=== PATIENT | male | born 1975 | race Caucasian/White ===

== ENCOUNTER 2023-09-16 09:57 | Emergency (ER) | payer MEDICAID, SELFPAY ==
[2023-09-16 10:00] VITALS: BP 101/68; PULSE 89; RESP 19; TEMP 35.7; O2SAT 98; BMI 23.3
--- NOTE | 2023-09-16 10:53 | EDS_ITS ---
HPI HPI - GI History of Present Illness Chief Complaint: Abd Pain Informant: patient Abdominal Pain/Flank Pain Onset: Days (2) Context: Gradual Onset Timing: Continuous Quality: - (Discomfort) Location: - (Diffuse lower abdomen nonlateralizing) Current Severity: Moderate Maximum Severity: Moderate Worsened by: Car ride Relieved by: Nothing Nausea/Vomiting/Emesis GI Symptom: Negative for Nausea or Vomiting Diarrhea/Melena/Hematochezia GI Symptom: Positive for Diarrhea; Negative for Melena or Hematochezia Onset: Days (2) Stool Quality: Positive for Watery (With bits of undigested food) Severity: Moderate (5-10 bouts per day approximately) Associated Symptoms Associated Symptoms: Negative for Dysuria, Frequency, Hematuria or Urgency Narrative Narrative: 47-year-old male has been having diarrhea and lower abdominal discomfort simultaneously for the last couple days. After having diarrhea, the abdominal pain does not change. Denies any nausea or vomiting. Had an appendectomy about 7 years ago no other abdominal surgeries. He denies any fevers or chills that he knows of and has not been feeling poorly in general but he was just concerned about the pain and notes this is how the pain felt when he first started having pain that later became appendicitis. He denies any suspicious food ingestion recently, no known sick contacts his family has not had this. He was on antibiotics 2 or 3 weeks ago for a tooth ache, he cannot remember exactly which one it was but knows it was not clindamycin. Has a history of rheumatoid arthritis currently not on his medications for it because he and his are trying to get . [facility] Medical History Fingertip amputation Rheumatoid arthritis Home Medications ?Medication ?Instructions ?Recorded ?Last Taken ?Type meloxicam 7.5 mg tablet 7.5 mg PO DAILY #30 tabs 03/19/23 Unknown Rx ciprofloxacin HCl 500 mg tablet 500 mg PO BID #20 TABLETS 09/16/23 Unknown Rx metronidazole 500 mg tablet 500 mg PO Q12H #20 tabs 09/16/23 Unknown Rx Allergy/AdvReac Type Severity Reaction Status Date / Time amoxicillin (From Augmentin) Allergy Intermediate Itching Verified 03/19/23 13:05 clavulanic acid (From Allergy Intermediate Itching Verified 03/19/23 13:05 Augmentin) Family History (Updated 03/19/23 @ 13:[address] Cortney Cosme MD) Father Cancer lung Son Diabetes type 1 Grandfather Diabetes Surgical History History of appendectomy Social History adopted: No household members: spouse and children current occupational status: employed current occupation: [employer] in [place] pets and animals: Yes (2) pets and animals: dog(s) Smoking Status: Current every day smoker tobacco type: cigarettes Electronic Cigarette Use: not used how long ago did patient quit smoking: quit for 10 years in past quit status: has quit before alcohol intake: current alcohol intake frequency: holidays/special occasions only substance use type: does not use caffeine: Yes (>5) Type: carbonated beverages frequency: daily seatbelt use: always do you feel safe at home: Yes ROS ROS ED Constitutional Constitutional ED: Denies chills or fever(s) Eyes Eyes: Denies change in vision or diplopia ENT ENT ED: Denies rhinorrhea or sore throat Cardiovascular Cardiovascular: Denies chest pain or palpitations Respiratory/Chest Respiratory/Chest: Denies cough or dyspnea Gastrointestinal Gastrointestinal: Reports abdominal pain, diarrhea and other Details: After having diarrhea feels like he still needs to have a bowel movement even though he is unable to ; Denies melena, nausea, rectal bleeding or vomiting Genitourinary Genitourinary ED: Reports other Details: After urinating, feels like he still needs to urinate even though he is unable to ; Denies dysuria or hematuria Musculoskeletal Musculoskeletal: Reports arthralgias; Denies back pain or neck pain Integumentary Denies abscess or rash Neurologic Neurologic: Denies headache(s), paresthesias or weakness Psychiatric Psychiatric: Denies anxiety or suicidal thoughts EXAM Physical Exam Const Vital Signs: 09/16/23 10:00 09/16/23 12:00 Temperature 96.3 F L Temperature Source Temporal Pulse Rate 89 65 Respiratory Rate 19 H 16 Blood Pressure 101/68 Blood Pressure Mean 79 Pulse Ox 98 95 Oxygen Delivery Method Room Air Room Air Positive well nourished and well developed General Appearance ED: well developed and NAD HEENT Reports moist mucous membranes normocephalic and atraumatic Eyes PERRL and EOMs intact bilaterally Neck full ROM and supple Resp normal respiratory effort and clear to auscultation bilaterally Cardio regular rate, regular rhythm and no murmurs GI non-tender and non-distended GI Narrative: Benign abdomen Auscultation: normoactive bowel sounds Palpation: soft Back/Spine no CVA tenderness General Back: other FROM Extremity normal to inspection General Extremety ED: Negative for edema, pulses abnormal or tenderness General Extremity: Negative for edema or pulses abnormal Neuro oriented x3, CN's II-XII intact bilaterally and no sensory deficits noted Sensorium / Orientation: awake and alert Motor Exam: strength 5/5 throughout Skin no rashes or lesions noted and no wounds MDM MDM MDM Narrative Medical decision making narrative: Patient seems most likely to be having intestinal pain/spasm, and acute enteritis would be the most likely reason in my judgment. His abdomen is very benign. He does have some mild subjective diffuse lower abdominal tenderness. I started with lab work and gave him a dose of Toradol and dicyclomine. Couple hours later, the lab work is all normal including liver enzymes and urinalysis, and he states he feels no better and states he actually feels a little worse than he did before. His white blood count is at the high end of normal with no left shift. And considering C. difficile because of his recent antibiotics, we ordered diarrhea studies but after several hours he has not had to go at all making C. difficile less likely. Other causes of enteritis are considered. [place] light is agreeable to a CT scan to evaluate for diverticulitis or other acute inflammatory disorder other than infectious enteritis and I ordered him a dose of morphine. Patient declined morphine, I reviewed the CT images and the result which I agree with, it is consistent with acute diverticulitis. This changes the course, as I am more inclined to treat the patient with antibiotics now. He states that the antibiotic he was on for his dental pain was Augmentin, and he broke out in hives and is allergic to it. Therefore we will start him on Cipro and Flagyl he can be treated as an outpatient since he has a benign abdomen and is tolerating pain, he declined a prescription for analgesics, and advised to follow-up with his doctor or return if worse. He is comfortable with the plan. Lab Data Attestation: I reviewed the patient's lab results. Labs: Laboratory Results - last 24 hr 09/16/23 10:56 WBC 9.7 RBC 4.81 Hgb 14.2 Hct 41.8 MCV 86.9 MCH 29.5 MCHC 34.0 RDW Std Deviation 40.4 RDW Coeff of Francis 12.8 Plt Count 286 MPV 9.7 Immature Gran % (Auto) 0.400 Neut % (Auto) 67.0 Lymph % (Auto) 23.6 [place] % (Auto) 6.7 Eos % (Auto) 1.8 Baso % (Auto) 0.5 Absolute Neuts (auto) 6.5 Absolute Lymphs (auto) 2.28 Nucleated RBC % 0 Sodium 139 Potassium 4.1 Chloride 106 Carbon Dioxide 26.0 Anion Gap 7 BUN 10 Creatinine 0.84 Estim Creat Clear Calc 95.59 Est GFR (MDRD) Af Amer 126 Est GFR (MDRD) Non-Af 104 BUN/Creatinine Ratio 11.9 Glucose 102 Calcium 8.7 Total Bilirubin 0.60 AST 18 ALT 23 Alkaline Phosphatase 96 Total Protein 6.6 Albumin 3.4 Globulin 3.2 Albumin/Globulin Ratio 1.1 Urine Color Straw Urine Clarity Clear Urine pH 8.0 Ur Specific [place] 1.015 Urine Protein Negative Urine Glucose (UA) Normal Urine Ketones Negative Urine Occult Blood Negative Urine Nitrite Negative Urine Bilirubin Negative Urine Urobilinogen Normal Ur Leukocyte Esterase Negative Urine RBC 0 SEEN Urine WBC 0 SEEN Ur Squamous Epith Cells 0 SEEN Urine Bacteria 0 SEEN Urine Mucus 0 SEEN Radiography Diagnostic Testing: Clinical Impression(s) from Imaging Studies Abdomen/Pelvis CT 09/16/23 14:46 IMPRESSION: Diverticulitis of the distal descending colon. No abscess or perforation. Electronically Signed: Felix Rascon MD at 16:23 EDT , Discharge Plan Triage Chief Complaint: Abd Pain ED Provider: Cesar Moran Dx/Rx/DC Orders Clinical Impression: Diverticulitis large intestine Instructions: Diverticulitis Dc Prescriptions: New metronidazole 500 mg tablet 500 mg PO Q12H Qty: 20 0RF ciprofloxacin HCl 500 mg tablet 500 mg PO BID Qty: 20 0RF No Action meloxicam 7.5 mg tablet 7.5 mg PO DAILY Qty: 30 2RF Primary Care Provider: Cortney Cosme Referrals: Cortney Cosme MD [Primary Care Provider] - 1 Week Print Language: Maltese Disposition Disposition: Home, Self Care
[2023-09-16] MEDS: Ketorolac 30 MG/ML Syringe IV (11:04)
[2023-09-16] MEDS: 0.9% Normal Saline (1000mL) 1,000 ML 999 ML IV (11:05)
[2023-09-16] MEDS: Dicyclomine 10 MG Capsule 20 MG PO (11:05)
[2023-09-16 11:07] LABS: Bacteria 0 SEEN /hpf (None Seen); Mucous, Urine 0 SEEN /hpf (<or=2+); Red Blood Cells-Urine 0 SEEN /hpf (0-5); Squamous Epithelial Cells - UA 0 SEEN /hpf (0-5); White Blood Cells 0 SEEN /hpf (0-5)
[2023-09-16 11:10] LABS: Color, Urine Straw (Yellow); Glucose, Dipstick Normal (Normal); Ketone-Dipstick Negative (Negative); Leukocyte Esterase-Dipstick Negative /ul (Negative); Nitrite-Dipstick Negative (Negative); Occult Blood-Urine Negative /ul (Negative); Protein-Dipstick Negative (Negative); Specific Gravity, Urine 1.015 (1.002-1.030); Urine Bilirubin Dipstick Negative (Negative); Urine Clarity Clear (Clear); Urine Urobilinogen Normal (Normal)
[2023-09-16 11:11] LABS: Absolute Lymphocyte Count 2.28 X10^3/uL (0.83-4.51); Absolute Neutrophil Count 6.5 X10^3/uL (2.0-7.7); Basophil# 0.05 X10^3/uL; Basophil% 0.5 % (0-1); Eosinophil# 0.17 X10^3/uL; Eosinophils% 1.8 % (0-5); Hematocrit 41.8 % (40-54); Hemoglobin 14.2 g/dL (13.0-16.5); Lymphocyte # 2.28 X10^3/ul (0.83-4.51); Lymphocyte % 23.6 % (19-41); Mean Corpuscular Hgb 29.5 pg (27.0-32.0); Mean Corpuscular Volume 86.9 fL (80-94); Mean Platelet Vol. 9.7 fl (6.2-12.0); Monocyte# 0.65 X10^3/uL; Monocyte% 6.7 % (0-10); NRBC Flagged by Analyzer 0 % (0-5); Neutrophil # 6.46 X10^3/uL (2.7-7.7); Platelet Count 286 K/mm3 (150-450); RBC Distribution Width CV 12.8 % (11.6-14.6); RBC Distribution Width SD 40.4 fl (35.1-43.9); Red Blood Count 4.81 M/mm3 (4.6-6.2); White Blood Count 9.7 K/mm3 (4.4-11.0)
[2023-09-16 11:24] LABS: ALB/GLOB Ratio 1.1 RATIO (0.9-2.4); AST(SGOT) 18 U/L (15-37); Alanine Aminotransfer ALT/SGPT 23 U/L (16-61); Albumin, Serum 3.4 g/dL (3.2-5.0); Alkaline Phosphatase 96 U/L (45-117); Anion Gap 7 (5-15); BUN 10 mg/dL (7-18); BUN/Creat Ratio 11.9 RATIO (10-20); Calcium,Total 8.7 mg/dL (8.5-10.1); Chloride 106 mmol/L (98-107); Creatinine, Serum 0.84 mg/dL (0.70-1.30); EST Glomerular Filtration Rate 104 mL/min (>60); Est Glom Filt Rate - Afr Amer 126 mL/min (>60); Estimated Creatinine Clearance 95.59 ml/min; Globulin 3.2 g/dL (2.2-4.2); Glucose 102 mg/dL (74-106); Potassium 4.1 mmol/L (3.5-5.1); Protein, Total 6.6 g/dL (6.4-8.2); Sodium Level 139 mmol/L (136-145)
[2023-09-16 12:00] VITALS: PULSE 65; RESP 16; O2SAT 95
--- NOTE | 2023-09-16 14:46 | CT_ITS ---
STUDY: CT ABDOMEN AND PELVIS WITH CONTRAST REASON FOR EXAM: Male, 47 years old. lower abd pain RADIATION DOSAGE (If Supplied By Facility): CTDIvol = ( 9.21 ) mGy, DLP = ( 605.96 ) mGycm TECHNIQUE: Transaxial images were obtained from the dome of the diaphragm to the symphysis pubis without oral contrast. IV 100mL Isovue-300 was administered. Sagittal and coronal images were reconstructed. Individualized dose optimization techniques were used for this CT. COMPARISON: None. FINDINGS: The visualized lung bases are unremarkable. The visualized portions of the heart are within normal limits. Normal liver. Normal gallbladder and extrahepatic biliary system. Normal spleen. Normal pancreas. Normal bilateral adrenal glands. Normal right kidney. Normal left kidney. Normal visualized stomach. Normal small intestine. There is diverticulosis, with thickening of the colon wall, and pericolonic inflammation changes consistent with acute diverticulitis. No loculated fluid collection just just abscess. No pneumoperitoneum to suggest perforation. There is non-visualization of the appendix. Normal abdominal aorta. Normal inferior vena cava. Normal retroperitoneum. Normal urinary bladder. Normal abdominal wall. Mild dextroscoliosis lumbar spine. CT/Abdomen/Pelvis W IV Cont ONLY IMPRESSION: Diverticulitis of the distal descending colon. No abscess or perforation. Electronically Signed: Felix Rascon MD at 16:23 EDT ,
[2023-09-16] MEDS: metroNIDAZOLE 500 MG Tablet PO (16:45)
[2023-09-16] MEDS: Ciprofloxacin 500 MG Tablet PO (16:45)
[2023-09-16 16:46] VITALS: BP 90/62; PULSE 72; RESP 16; TEMP 36.7; O2SAT 97
== END 2023-09-16 16:53 | disposition home or self-care (01) ==
PROVIDERS: Emergency Provider Emergency Medicine; PCP Internal Medicine; Visit Provider Emergency Medicine
DX: K57.32 Diverticulitis of large intestine without perforation or abscess without bleeding (principal); F17.210 Nicotine dependence, cigarettes, uncomplicated; Z90.49 Acquired absence of other specified parts of digestive tract
CPT/HCPCS: 74177; 80053; 81001; 85025; 96361; 96374; 99284; J7030; Q9967; A4216